=== PATIENT | female | born 1955 | race Caucasian/White ===

== ENCOUNTER 2018-11-28 01:59 | Emergency (ER) | payer BC ==
[2018-11-28 02:26] LABS: Urine Appearance Clear; Urine Bilirubin Negative (Negative); Urine Blood Negative (Negative); Urine Color Straw; Urine Glucose Negative (Negative); Urine Ketones Negative (Negative); Urine Nitrite Negative (Negative); Urine Protein Negative (Negative); Urine Specific Gravity 1.009 (1.010-1.030); Urine Urobilinogen Negative (Negative)
[2018-11-28] MEDS ORDERED: Ketorolac INJ* 30 MG/ML 1 ML VIAL IV PUSH ONE (02:36)
[2018-11-28] MEDS ORDERED: NS 0.9% 1000 ML** 1,000 ML IV ONE ×2 (02:36→05:53)
[2018-11-28] MEDS ORDERED: Ondansetron INJ* 2 MG/ML VIAL IV ONE (02:37)
[2018-11-28] MEDS ORDERED: Morphine 4 MG/ML VIAL (1 ml) 4 MG/ML VIAL IV ONE (02:37)
--- NOTE | 2018-11-28 02:40 | ED ---
GI/ HPI - HPI Summary HPI Summary: This patient is a 63 year old F presenting to ED with a chief complaint of intermittent severe R flank pain since 11/26/18 night. The pain radiates to the front. The pain is worse upon movement. Patient has not had kidney stones before. She has had a cholecystectomy. The patient rates the pain 8/10 in severity. Symptoms aggravated by nothing. Symptoms alleviated by nothing. Patient reports nausea. Patient denies vomiting, fever. - History of Current Complaint Chief Complaint: EDFlankPain Time Seen by Provider: 11/28/18 02:30 Stated Complaint: LOWER BACK PIAN Hx Obtained From: Patient Onset/Duration: Started Days Ago - 11/26/18, Still Present Timing: Intermittent - Worsening in severity Severity: Severe Pain Intensity: 8 Location of Pain: Flank - R Associated Signs and Symptoms: Positive: Nausea. Negative: Vomiting, Fever Aggravating Factor(s): Nothing Alleviating Factor(s): Nothing - Allergy/Home Medications Allergies/Adverse Reactions: Allergies Allergy/AdvReac Type Severity Reaction Status Date / Time No Known Allergies Allergy Verified 11/28/18 02:01 PMH/Surg Hx/FS Hx/Imm Hx Endocrine/Hematology History: Denies: Hx Diabetes, Hx Thyroid Disease Cardiovascular History: Denies: Hx Hypertension Respiratory History: Denies: Hx Asthma, Hx Chronic Obstructive Pulmonary Disease (COPD) GI History: Denies: Hx Ulcer - Surgical History Surgery Procedure, Year, and Place: Gallbladder Infectious Disease History: No Infectious Disease History: Denies: Hx Hepatitis, Hx Human Immunodeficiency Virus (HIV), History Other Infectious Disease, Traveled Outside the [place] in Last 30 Days - Family History Known Family History: Positive: Non-Contributory - Social History Alcohol Use: None Hx Substance Use: No Substance Use Type: Reports: None Hx Tobacco Use: No Smoking Status (MU): Never Smoked Tobacco Review of Systems Negative: Fever Positive: Nausea. Negative: Vomiting, Diarrhea Positive: flank pain All Other Systems Reviewed And Are Negative: Yes Physical Exam - Summary Physical Exam Summary: VITAL SIGNS: Reviewed. GENERAL: Patient is a well-developed and nourished female who is lying comfortable in the stretcher. Patient is not in any acute respiratory distress. HEAD AND FACE: No signs of trauma. No ecchymosis, hematomas or skull depressions. No sinus tenderness. EYES: PERRLA, EOMI x 2, No injected conjunctiva, no nystagmus. EARS: Hearing grossly intact. Ear canals and tympanic membranes are within normal limits. MOUTH: Oropharynx within normal limits. NECK: Supple, trachea is midline, no adenopathy, no JVD, no carotid bruit, no c- spine tenderness, neck with full ROM CHEST: Symmetric, no tenderness at palpation LUNGS: Clear to auscultation bilaterally. No wheezing or crackles. CVS: Regular rate and rhythm, S1 and S2 present, no murmurs or gallops appreciated. ABDOMEN: right CVA tenderness EXTREMITIES: FROM in all major joints, no edema, no cyanosis or clubbing. NEURO: Alert and oriented x 3. No acute neurological deficits. Speech is normal and follows commands. SKIN: Dry and warm Triage Information Reviewed: Yes Vital Signs On Initial Exam: Initial Vitals Temp Pulse Resp BP Pulse Ox 97.5 F 63 16 191/89 95 11/28/18 02:00 11/28/18 02:00 11/28/18 02:00 11/28/18 02:00 11/28/18 02:00 Vital Signs Reviewed: Yes Diagnostics - Vital Signs Vital Signs Temp Pulse Resp BP Pulse Ox 11/28/18 02:00 97.5 F 63 16 191/89 95 - Laboratory Lab Results: Lab Results 11/28/18 Range/Units 02:15 Urine Color Straw Urine Appearance Clear Urine pH 7.0 (5-9) Ur Specific [place] 1.009 L (1.010-1.030) Urine Protein Negative (Negative) Urine Ketones Negative (Negative) Urine Blood Negative (Negative) Urine Nitrate Negative (Negative) Urine Bilirubin Negative (Negative) Urine Urobilinogen Negative (Negative) Ur Leukocyte Esterase Negative (Negative) Urine Glucose Negative (Negative) Urine Ascorbic Acid * A (Negative) Result Diagrams: 11/28/18 02:43 11/28/18 02:43 Lab Statement: Any lab studies that have been ordered have been reviewed, and results considered in the medical decision making process. - Radiology CXR Radiology Interpretation Completed By: ED Physician Summary of Radiographic Findings: No acute processes, pending official radiology report. - CT A/P CT Interpretation Completed By: Radiologist Summary of CT Findings: No acute findings. Perhaps previous cholecystectomy. Clinical correlation is needed. No hydronephrosis is appreciated. No radiodense urinary tract stones are visualized. Dr. Eaton has reviewed this radiology report. Re-Evaluation - Re-Evaluation First Eval Re-Evaluation Time: 05:25 Comment: Discussed results with patient. GIGU Course/Dx - Course Course Of Treatment: This patient is a 63 year old F presenting to ED with a chief complaint of intermittent severe R flank pain since 11/26/18 night. In the ED course, patient received Toradol, morphine, fluids, Zofran, pepcid, and Benadryl. Blood work and UA obtained. CT A/P revealed no acute findings. Perhaps previous cholecystectomy. Clinical correlation is needed. No hydronephrosis is appreciated. No radiodense urinary tract stones are visualized. CXR revealed no acute processes, pending official radiology report. Patient will be signed out to Dr. Capone at 0700 on 11/28/18 at shift change pending CTA chest/thorax. - Diagnoses Provider Diagnoses: Back pain Discharge - Sign-Out/Discharge Documenting (check all that apply): Sign-Out Patient Signing out patient TO: Zac Capone Patient Received Moderate/Deep Sedation with Procedure: No - Discharge Plan Prescriptions: oxyCODONE/Acetamin 5/325 MG* [Percocet 5/325 TAB*] 1 tab PO Q6H PRN #14 tab MDD 4 PRN Reason: Pain Patient Education Materials: Back Pain (ED) Referrals: Christopher Hickey MD [Primary Care Provider] - 2 Days Additional Instructions: Follow-up with your primary care provider in 2-3 days. RETURN TO THE ER FOR WORSENING OR CHANGING SYMPTOMS. - Attestation Statements Document Initiated by Scribe: Yes Documenting Scribe: Vish Jeter Provider For Whom Jeffery is Documenting (Include Credential): Mignon Eaton MD Scribe Attestation: Vish Swartz, scribed for Mignon Eaton MD on 11/28/18 at 0701. Status of Scribe Document: Ready
[2018-11-28 02:59] LABS: ABS Eosinophils 0.2 10^3/ul (0-0.6); ABS Lymphocytes 1.8 10^3/ul (1.0-4.8); ABS Monocytes 0.6 10^3/ul (0-0.8); ABS Neutrophils 3.5 10^3/ul (1.5-7.7); Eosinophil % 2.8 %; Hematocrit 39 % (35-47); Hemoglobin 13.4 g/dL (12.0-16.0); Lymphocyte % 29.5 %; Mean Corpuscular HGB Conc 34 g/dL (31-36); Mean Corpuscular Hemoglobin 34 pg (27-31); Mean Corpuscular Volume 99 fL (80-97); Mean Platelet Volume 7.9 fL (7.4-10.4); Platelet Count 238 10^3/uL (150-450); Red Blood Count 3.96 10^6 /uL (3.70-4.87); Red Cell Distribution Width 13 % (10-15); White Blood Count 6.2 10^3/uL (3.5-10.8)
[2018-11-28 03:07] LABS: Activated Partial Thrombo Time 48.7 seconds (26.0-38.0); INR 0.98 (0.82-1.09)
[2018-11-28 03:17] LABS: Albumin 3.9 g/dL (3.2-5.2); Albumin/Globulin Ratio 1.5 (1-3); C Reactive Protein 5.96 mg/L (<8.01); Calcium 9.5 mg/dL (8.6-10.3); EGFR African American 82.9 (>60); EGFR Non-African American 68.5 (>60); Globulin 2.6 g/dL (2-4); Magnesium 2.1 mg/dL (1.9-2.7); Potassium 3.9 mmol/L (3.5-5.0); Total Protein 6.5 g/dL (6.4-8.9)
[2018-11-28] MEDS ORDERED: Iohexol 300* (CONTRAST) 10 ML SDV IV ONE (03:26)
[2018-11-28] MEDS ORDERED: methylPREDNISolone 125 MG* 2 ML VIAL IV ONE (04:01)
[2018-11-28] MEDS ORDERED: diPHENhydraMINE IV* 50 MG/ML 1 ml VIAL (BENADRYL) IV ONE (04:01)
[2018-11-28] MEDS ORDERED: Famotidine IV* 10 MG/ML 2 ML (20 mg) IV SLOW PU ONE (04:37)
[2018-11-28] MEDS ORDERED: Iohexol 350* (CONTRAST) 500 ML MDV IV ONE (06:33)
--- NOTE | 2018-11-28 07:24 | ED ---
Progress - Progress Note Progress Note: This patient was signed out from Dr. Eaton to Dr. Capone at 0700 on 11/28/18, pending disposition, awaiting Chest CTA and CXR. Chest/Thorax CTA reveals no acute pulmonary embolic disease. CXR reveals IMPRESSION: NO EVIDENCE FOR ACTIVE CARDIOPULMONARY DISEASE. The patients condition is stable and will be discharged to home with Dx of right sided abdominal pain. - Results/Orders Results/Orders: Chest/Thorax CTA reveals, per radiologist IMPRESSION: No acute pulmonary embolic disease. ED physician has reviewed this radiology report. CXR reveals, per radiologist, IMPRESSION: NO EVIDENCE FOR ACTIVE CARDIOPULMONARY DISEASE. ED physician has reviewed this radiology report. Re-Evaluation - Re-Evaluation First Eval Re-Evaluation Time: 08:06 Comment: Discussed results with patient. Course/Dx - Course Course Of Treatment: This patient was signed out from Dr. Eaton to Dr. Capone at 0700 on 11/28/18, pending disposition, awaiting Chest CTA and CXR. Chest/ Thorax CTA reveals no acute pulmonary embolic disease. CXR reveals IMPRESSION: NO EVIDENCE FOR ACTIVE CARDIOPULMONARY DISEASE. Patient's pain is resolved, mild RLQ tenderness, nml appendix, no kidney stones on CT. Pt will be discharged home. - Diagnoses Provider Diagnoses: Right sided abdominal pain Discharge - Sign-Out/Discharge Documenting (check all that apply): Patient Departure - Discharge Patient Received Moderate/Deep Sedation with Procedure: No - Discharge Plan Condition: Stable Disposition: HOME Prescriptions: oxyCODONE/Acetamin 5/325 MG* [Percocet 5/325 TAB*] 1 tab PO Q6H PRN #14 tab MDD 4 PRN Reason: Pain Patient Education Materials: Abdominal Pain (ED) Referrals: Christopher Hickey MD [Primary Care Provider] - 2 Days Additional Instructions: Use heating pad as needed. Follow-up with your primary care provider in 2 days. RETURN TO THE ER FOR WORSENING OR CHANGING SYMPTOMS. - Attestation Statements Document Initiated by Scribe: Yes Documenting Scribe: Destiny Parson Provider For Whom Scribe is Documenting (Include Credential): Dr. Zac Capone MD Scribe Attestation: Destiny Swartz scribed for Dr. Zac Capone MD on 11/28/18 at 0924. Status of Scribe Document: Ready
[2018-11-28 08:34] VITALS: BP 149/64
== END 2018-11-28 08:34 | disposition home or self-care (01) ==
LOC: ED 01:59
DX: M54.9 Dorsalgia, unspecified (principal); R10.9 Unspecified abdominal pain; Z90.49 Acquired absence of other specified parts of digestive tract
CPT/HCPCS: 36415; 71045; 71275; 74177; 80053; 81003; 82150; 82550; 83690; 83735; 85025; 85379; 85610; 85730; 86140; 96361; 96374; 96375; 99283; J1200; J1885; J2270; J2405; J2930; Q9967